=== PATIENT | female | born 1985 | race Caucasian/White ===

== ENCOUNTER 2017-12-27 15:18 | Emergency (ER) | payer SELFPAY ==
[~2017-12-27] VITALS: Ht 160 cm; Wt 59.1 kg
[~2017-12-27 15:18] MED LIST: ALBUTEROL SUL0.083 % IN; AMOXICILLIN500 MG PO; BACTRIM DS1 TAB PO; BUSPAR5 MG PO; CLARITIN10 M1 PO; MELOXICAM7.5 MG PO; NAPROSYN500 MG PO; NEURONTIN100 MG PO; PENICILLN VK500 MG PO; PROVENTIL HFA INH; ROBITUSSIN AC10 ML PO; ZITHROMAX250 MG PO; ZOFRAN4 MG/TAB PO
[2017-12-27 15:59] LABS: HEMATOCRIT 30.7 % (37.0-47.0); HEMOGLOBIN 9.3 g/dl (12.0-16.0); IMMATURE GRANULOCYTES 0.4 % (0.0-5.0); MEAN CELL VOLUME 78.7 fL CALC (80.0-100.0); MEAN CORPUSCULAR HGB 23.8 pG CALC (26.0-32.0); MEAN CORPUSCULAR HGB CONC 30.3 g/L CALC (32.0-36.0); NEUT# 5.4 thou/uL (2.00-7.15); RED BLOOD COUNT 3.9 mill/uL (4.20-5.60); RED CELL DISTRI WIDTH 15.8 % (11.5-15.5)
[2017-12-27 16:21] LABS: ALBUMIN 4.5 g/dL (3.2-5.0); ALKALINE PHOSPHATASE 67 u/l (38-126); ANION GAP 15 (6-22 (CALC)); BILIRUBIN, TOTAL 0.3 mg/dL (0.0-1.4); BUN 15 mg/dL (7-17); BUN/CREATININE RATIO 26 (12-20 (CALC)); CARBON DIOXIDE 27 mmol/l (22-30); CHLORIDE 102 mmol/l (95-108); CREATININE 0.6 mg/dL (0.5-1.0); GFR > 60 ML/MIN (>=60 (CALC)); GFR FOR AFR.AMER. > 60 ML/MIN (>=60 (CALC)); LIPASE 122 u/l (23-300); POTASSIUM 3.3 mmol/l (3.5-5.1); SGOT/AST 16 u/l (14-36); SODIUM 140 mmol/l (137-146); TOTAL PROTEIN 7.2 g/dL (6.3-8.2)
[2017-12-27] MEDS ORDERED: RANITIDINE 150150 MG PO (16:44)
[2017-12-27 16:49] VITALS: BP 138/94
== END 2017-12-27 16:54 | disposition home or self-care (01) | DRG 392 ==
LOC: ED 15:18
PROVIDERS: Family Medicine
DX: K29.70 Gastritis, unspecified, without bleeding (principal); R10.13 Epigastric pain; R06.02 Shortness of breath; R11.0 Nausea; R07.9 Chest pain, unspecified

== ENCOUNTER 2018-05-07 15:32 | Emergency (ER) | payer OTHER ==
[~2018-05-07] VITALS: Ht 160 cm; Wt 52.3 kg
[~2018-05-07 15:32] MED LIST changes: +RANITIDINE 150150 MG PO
[2018-05-07] MEDS ORDERED: PERCOGESI1 PO (16:16)
[2018-05-07 16:44] VITALS: BP 121/97
[2018-05-08] MEDS ORDERED: PERCOGESI1 PO (13:58)
== END 2018-05-07 17:05 | disposition home or self-care (01) ==
LOC: ED 15:32
DX: R51 Headache (principal); J45.909 Unspecified asthma, uncomplicated

== ENCOUNTER 2018-12-15 18:55 | Emergency (ER) | payer OTHER ==
[~2018-12-15] VITALS: Ht 160 cm; Wt 53.0 kg
[~2018-12-15 18:55] MED LIST changes: +PERCOGESI1 PO
[2018-12-15] MEDS ORDERED: BUSPAR5 M1 PO (19:04)
[2018-12-15] MEDS ORDERED: ZOFRAN4 MG/TAB PO (20:50)
[2018-12-15 21:29] VITALS: BP 138/88
== END 2018-12-15 21:28 | disposition home or self-care (01) ==
LOC: ED 18:55
DX: R51 Headache (principal); B34.9 Viral infection, unspecified

== ENCOUNTER 2019-04-06 | Emergency (ER) | payer OTHER ==
[~2019-04-06] MED LIST changes: +BUSPAR5 M1 PO
[2019-04-06] MEDS ORDERED: OMEPRAZOLE DR40 MG PO (14:26)
[2019-04-06] MEDS ORDERED: PROAIR HFA108 MCG/AC IN (14:28)
[2019-04-06] MEDS ORDERED: ZOFRAN4 MG/TAB PO (16:00)
== END 2019-04-06 16:24 | disposition home or self-care (01) ==
DX: K52.9 Noninfective gastroenteritis and colitis, unspecified (principal)

== ENCOUNTER 2020-09-02 12:19 | Emergency (ER) | payer OTHER ==
[~2020-09-02] VITALS: Ht 160 cm; Wt 62.6 kg
[~2020-09-02 12:19] MED LIST changes: +OMEPRAZOLE DR40 MG PO; +PROAIR HFA108 MCG/AC IN
[2020-09-02] MEDS ORDERED: TRAMADOL HYDROC50 M1 PO (12:45)
[2020-09-02] MEDS ORDERED: PENICILLN VK500 MG PO (12:45)
[2020-09-02 12:56] VITALS: BP 139/91
== END 2020-09-02 12:56 | disposition home or self-care (01) ==
LOC: ED 12:19
DX: K04.7 Periapical abscess without sinus (principal); K02.9 Dental caries, unspecified; J45.909 Unspecified asthma, uncomplicated; F41.9 Anxiety disorder, unspecified; K21.9 Gastro-esophageal reflux disease without esophagitis

== ENCOUNTER 2021-01-19 08:46 | Emergency (ER) | payer OTHER ==
[~2021-01-19] VITALS: Ht 160 cm; Wt 70.0 kg
[~2021-01-19 08:46] MED LIST changes: +TRAMADOL HYDROC50 M1 PO
[2021-01-19] MEDS ORDERED: NAPROXEN500 MG PO (10:20)
[2021-01-19 10:31] VITALS: BP 132/91
== END 2021-01-19 10:34 | disposition home or self-care (01) ==
LOC: ED 08:46
DX: S92.351A Displaced fracture of fifth metatarsal bone, right foot, initial encounter for closed fracture (principal); J45.909 Unspecified asthma, uncomplicated; F41.9 Anxiety disorder, unspecified; K21.9 Gastro-esophageal reflux disease without esophagitis; W07.XXXA Fall from chair, initial encounter; Y92.009 Unspecified place in unspecified non-institutional (private) residence as the place of occurrence of the external cause

== ENCOUNTER 2021-04-24 09:02 | Emergency (ER) | payer OTHER ==
[~2021-04-24] VITALS: Ht 160 cm; Wt 65.0 kg
[~2021-04-24 09:02] MED LIST changes: +NAPROXEN500 MG PO
[2021-04-24] MEDS ORDERED: OMEPRAZOLE DR10 MG (09:27)
[2021-04-24] MEDS ORDERED: ALBUTERO2 XX (09:27)
[2021-04-24] MEDS ORDERED: BUSPAR5 MG PO (09:27)
[2021-04-24 09:56] LABS: URINE BILIRUBIN - DIPSTICK NEGATIVE (NEGATIVE); URINE BLOOD DIPSTICK LARGE (NEGATIVE); URINE COLOR YELLOW; URINE GLUCOSE - DIPSTICK NEGATIVE (NEGATIVE); URINE KETONE TRACE mg/dL (NEGATIVE); URINE LEUK ESTERASE NEGATIVE (NEGATIVE); URINE PROTEIN - DIPSTICK 100 mg/dL (NEG-TRACE); URINE SPECIFIC GRAVITY >=1.030; URINE UROBILINOGEN - DIPSTICK 0.2 E.U./dL (0.2)
[2021-04-24 10:10] LABS: URINE NITRITE - DIPSTICK POSITIVE (Negative)
[2021-04-24 10:14] LABS: URINE BACTERIA MANY hpf; URINE SQUAMOUS EPITHELIAL CELL MANY EPI/hpf (0-FEW)
[2021-04-24] MEDS ORDERED: ONDANSETRON4 MG PO (10:23)
[2021-04-24] MEDS ORDERED: OMNI-PAC300 MG PO (10:23)
[2021-04-24 10:48] VITALS: BP 126/85
== END 2021-04-24 10:48 | disposition home or self-care (01) ==
LOC: ED 09:02
PROVIDERS: Family Medicine
DX: N39.0 Urinary tract infection, site not specified (principal); B96.1 Klebsiella pneumoniae [K. pneumoniae] as the cause of diseases classified elsewhere; U07.1 COVID-19; F41.9 Anxiety disorder, unspecified; K21.9 Gastro-esophageal reflux disease without esophagitis; J45.909 Unspecified asthma, uncomplicated

== ENCOUNTER 2021-08-22 20:53 | Observation (INO) | payer OTHER ==
[~2021-08-22] VITALS: Ht 160 cm; Wt 52.0 kg
[~2021-08-22 20:53] MED LIST changes: +ALBUTERO2 IN; +OMEPRAZOLE DR10 MG PO; +OMNI-PAC300 MG PO; +ONDANSETRON4 MG PO
[2021-08-22 21:02] VITALS: BP 138/79
[2021-08-22 21:29] LABS: URINE BILIRUBIN - DIPSTICK NEGATIVE (NEGATIVE); URINE BLOOD DIPSTICK LARGE (NEGATIVE); URINE COLOR YELLOW; URINE GLUCOSE - DIPSTICK NEGATIVE (NEGATIVE); URINE KETONE NEGATIVE (NEGATIVE); URINE PROTEIN - DIPSTICK 30 mg/dL (NEG-TRACE); URINE SPECIFIC GRAVITY 1.025
[2021-08-22 21:31] VITALS: BP 129/83
[2021-08-22 21:33] LABS: HCG SERUM/URINE (NEG/POS) NEGATIVE (NEGATIVE)
[2021-08-22 21:37] LABS: URINE LEUK ESTERASE MODERATE (NEGATIVE); URINE NITRITE - DIPSTICK POSITIVE (Negative)
[2021-08-22 21:38] LABS: URINE BACTERIA FEW hpf; URINE SQUAMOUS EPITHELIAL CELL MODERATE EPI/hpf (0-FEW); URINE WBC 50-100 WBC/hpf (0-5)
[2021-08-22 22:00] VITALS: BP 114/66
[2021-08-22 22:08] LABS: HEMATOCRIT 39.8 % (37.0-47.0); HEMOGLOBIN 12.9 g/dl (12.0-16.0); IMMATURE GRANULOCYTES 0.5 % (0.0-5.0); MEAN CORPUSCULAR HGB 30.1 pG CALC (26.0-32.0); MEAN CORPUSCULAR HGB CONC 32.4 g/dL CAL (32.0-36.0); NEUT# 17.43 thou/uL (2.00-7.15); RED BLOOD COUNT 4.28 mill/uL (4.20-5.60); RED CELL DISTRI WIDTH 12.6 % (11.5-15.5)
[2021-08-22 22:21] LABS: ALBUMIN 4.4 g/dL (3.2-5.0); BILIRUBIN, TOTAL 0.4 mg/dL (0.0-1.4); BUN 18 mg/dL (7-17); BUN/CREATININE RATIO 23 (12-20 (CALC)); CARBON DIOXIDE 29 mmol/l (22-30); CHLORIDE 96 mmol/l (95-108); CREATININE 0.8 mg/dL (0.5-1.0); GFR FOR AFR.AMER. > 60 ML/MIN (>=60 (CALC)); GFR OTHER RACES > 60 ML/MIN (>=60 (CALC)); LIPASE 70 u/l (23-300); SODIUM 136 mmol/l (137-146); TOTAL PROTEIN 7.8 g/dL (6.3-8.2)
[2021-08-22 22:22] LABS: ALKALINE PHOSPHATASE 132 u/l (38-126); ANION GAP 14 (6-22 (CALC)); POTASSIUM 2.6 mmol/l (3.5-5.1); SGOT/AST 196 u/l (14-36)
[2021-08-22 22:34] VITALS: BP 105/73
[2021-08-22 23:00] VITALS: BP 125/79
[2021-08-22 23:30] VITALS: BP 116/69
[2021-08-23 00:01] VITALS: BP 100/50
[2021-08-23 00:30] VITALS: BP 109/64
[2021-08-23 04:40] VITALS: BP 97/61
[2021-08-23 05:57] LABS: HEMATOCRIT 35.8 % (37.0-47.0); HEMOGLOBIN 11.2 g/dl (12.0-16.0); IMMATURE GRANULOCYTES 0.7 % (0.0-5.0); MEAN CELL VOLUME 94.7 fL CALC (80.0-100.0); MEAN CORPUSCULAR HGB 29.6 pG CALC (26.0-32.0); MEAN CORPUSCULAR HGB CONC 31.3 g/dL CAL (32.0-36.0); NEUT# 14.63 thou/uL (2.00-7.15); RED BLOOD COUNT 3.78 mill/uL (4.20-5.60); RED CELL DISTRI WIDTH 12.6 % (11.5-15.5)
[2021-08-23 07:21] VITALS: BP 122/80
[2021-08-23 07:52] LABS: ALKALINE PHOSPHATASE 115 u/l (38-126); BUN 19 mg/dL (7-17); BUN/CREATININE RATIO 30 (12-20 (CALC)); CARBON DIOXIDE 27 mmol/l (22-30); CHLORIDE 105 mmol/l (95-108); CREATININE 0.6 mg/dL (0.5-1.0); GFR FOR AFR.AMER. > 60 ML/MIN (>=60 (CALC)); GFR OTHER RACES > 60 ML/MIN (>=60 (CALC)); MAGNESIUM 1.9 mg/dL (1.6-2.3); SGOT/AST 141 u/l (14-36); SODIUM 137 mmol/l (137-146)
[2021-08-23 07:57] LABS: ALBUMIN 3.2 g/dL (3.2-5.0); ANION GAP 8 (6-22 (CALC)); BILIRUBIN, TOTAL 0.6 mg/dL (0.0-1.4); POTASSIUM 3.4 mmol/l (3.5-5.1); TOTAL PROTEIN 5.8 g/dL (6.3-8.2)
[2021-08-23] MEDS ORDERED: EXCEDRIN PO (10:21)
[2021-08-23 15:19] VITALS: BP 103/62
[2021-08-23 19:12] VITALS: BP 115/67
[2021-08-24 03:09] VITALS: BP 111/64
[2021-08-24 05:32] LABS: HEMATOCRIT 32.4 % (37.0-47.0); HEMOGLOBIN 10.3 g/dl (12.0-16.0); IMMATURE GRANULOCYTES 0.7 % (0.0-5.0); MEAN CELL VOLUME 94.7 fL CALC (80.0-100.0); MEAN CORPUSCULAR HGB 30.1 pG CALC (26.0-32.0); MEAN CORPUSCULAR HGB CONC 31.8 g/dL CAL (32.0-36.0); NEUT# 11.86 thou/uL (2.00-7.15); RED BLOOD COUNT 3.42 mill/uL (4.20-5.60); RED CELL DISTRI WIDTH 12.9 % (11.5-15.5)
[2021-08-24 05:49] LABS: ALBUMIN 2.8 g/dL (3.2-5.0); ALKALINE PHOSPHATASE 137 u/l (38-126); ANION GAP 9 (6-22 (CALC)); BUN 12 mg/dL (7-17); BUN/CREATININE RATIO 28 (12-20 (CALC)); CARBON DIOXIDE 25 mmol/l (22-30); CHLORIDE 107 mmol/l (95-108); CREATININE 0.4 mg/dL (0.5-1.0); GFR FOR AFR.AMER. > 60 ML/MIN (>=60 (CALC)); GFR OTHER RACES > 60 ML/MIN (>=60 (CALC)); MAGNESIUM 1.9 mg/dL (1.6-2.3); POTASSIUM 3.5 mmol/l (3.5-5.1); SGOT/AST 60 u/l (14-36); SODIUM 138 mmol/l (137-146); TOTAL PROTEIN 5.3 g/dL (6.3-8.2)
[2021-08-24 05:50] LABS: BILIRUBIN, TOTAL 0.3 mg/dL (0.0-1.4)
[2021-08-24 06:35] VITALS: BP 115/71
[2021-08-24 08:00] VITALS: BP 115/71
[2021-08-24] MEDS ORDERED: CIPROFLOXACN500 MG PO (09:37)
== END 2021-08-24 11:56 | disposition home or self-care (01) ==
LOC: ED 20:53 → ED-I 23:30 → ED 23:45 → MS2 23:46
PROVIDERS: Nurse Practitioner; ADMIT Hospitalist; ATTEND Hospitalist
DX: N10 Acute pyelonephritis (principal); E87.6 Hypokalemia; R74.8 Abnormal levels of other serum enzymes; K21.9 Gastro-esophageal reflux disease without esophagitis; J45.909 Unspecified asthma, uncomplicated; F41.9 Anxiety disorder, unspecified; F32.A Depression, unspecified; B96.20 Unspecified Escherichia coli [E. coli] as the cause of diseases classified elsewhere; Z87.440 Personal history of urinary (tract) infections; Z20.822 Contact with and (suspected) exposure to COVID-19
CPT/HCPCS: G0378

== ENCOUNTER 2021-11-12 11:55 | Emergency (ER) | payer OTHER ==
[~2021-11-12] VITALS: Ht 160 cm; Wt 59.0 kg
[~2021-11-12 11:55] MED LIST changes: +CIPROFLOXACN500 MG PO; +EXCEDRIN PO
[2021-11-12] MEDS ORDERED: CLINDAMYCIN300 M1 PO (12:19)
[2021-11-12 12:29] VITALS: BP 137/68
== END 2021-11-12 12:40 | disposition home or self-care (01) ==
LOC: ED 11:55
DX: K03.81 Cracked tooth (principal); J45.909 Unspecified asthma, uncomplicated; F41.9 Anxiety disorder, unspecified; K21.9 Gastro-esophageal reflux disease without esophagitis

== ENCOUNTER 2022-04-06 01:59 | Emergency (ER) | payer OTHER ==
[~2022-04-06] VITALS: Ht 160 cm; Wt 55.0 kg
[2022-04-06] VITALS (7 sets, daily range): BP systolic 132–167; BP diastolic 91–112
[~2022-04-06 01:59] MED LIST changes: +CLINDAMYCIN300 M1 PO
[2022-04-06 03:07] LABS: BASO% 0.3 % (0-3); EOS% 1.5 % (0-8); IMMATURE GRANULOCYTES 0.9 % (0.0-5.0); LYMPH% 14.5 % (15-41); MEAN CELL VOLUME 92.6 fL CALC (80.0-100.0); MEAN CORPUSCULAR HGB 29.5 pG CALC (26.0-32.0); MEAN CORPUSCULAR HGB CONC 31.9 g/dL CAL (32.0-36.0); MONO% 8.3 % (2-13); NEUT# 5.86 thou/uL (2.00-7.15); NEUT% 74.5 % (42-76); RED BLOOD COUNT 4.57 mill/uL (4.20-5.60); RED CELL DISTRI WIDTH 14.5 % (11.5-15.5)
[2022-04-06 03:08] LABS: URINE BILIRUBIN - DIPSTICK NEGATIVE (NEGATIVE); URINE BLOOD DIPSTICK MODERATE (NEGATIVE); URINE COLOR YELLOW; URINE GLUCOSE - DIPSTICK NEGATIVE (NEGATIVE); URINE KETONE 15 mg/dL (NEGATIVE); URINE PROTEIN - DIPSTICK 30 mg/dL (NEG-TRACE); URINE SPECIFIC GRAVITY >=1.030; URINE UROBILINOGEN - DIPSTICK 0.2 E.U./dL (0.2)
[2022-04-06 03:09] LABS: HEMATOCRIT 42.3 % (37.0-47.0); HEMOGLOBIN 13.5 g/dl (12.0-16.0)
[2022-04-06 03:11] LABS: HCG SERUM/URINE (NEG/POS) NEGATIVE (NEGATIVE)
[2022-04-06 03:21] LABS: URINE NITRITE - DIPSTICK NEGATIVE (Negative)
[2022-04-06 03:22] LABS: URINE LEUK ESTERASE NEGATIVE (NEGATIVE)
[2022-04-06 03:23] LABS: ALKALINE PHOSPHATASE 89 u/l (38-126); AMYLASE 61 u/l (30-110); ANION GAP 13 (6-22 (CALC)); BILIRUBIN, TOTAL 0.3 mg/dL (0.0-1.4); BUN 22 mg/dL (7-17); BUN/CREATININE RATIO 39 (12-20 (CALC)); CARBON DIOXIDE 28 mmol/l (22-30); CHLORIDE 103 mmol/l (95-108); CREATININE 0.6 mg/dL (0.5-1.0); GFR FOR AFR.AMER. > 60 ML/MIN (>=60 (CALC)); GFR OTHER RACES > 60 ML/MIN (>=60 (CALC)); LIPASE 122 u/l (23-300); POTASSIUM 3.3 mmol/l (3.5-5.1); SGOT/AST 42 u/l (14-36); SODIUM 141 mmol/l (137-146)
[2022-04-06 03:23] LABS: URINE BACTERIA MANY hpf; URINE EPITHELIAL CELLS MANY EPI/hpf (0-FEW)
[2022-04-06 03:29] LABS: ALBUMIN 5.2 g/dL (3.2-5.0); TOTAL PROTEIN 8.9 g/dL (6.3-8.2)
[2022-04-06] MEDS ORDERED: ULTRAM50 MG PO (05:48)
[2022-04-06] MEDS ORDERED: BACTRIM DS1 TAB PO (05:48)
[2022-04-06] MEDS ORDERED: ONDANSETRON4 MG PO (05:48)
== END 2022-04-06 06:22 | disposition home or self-care (01) ==
LOC: ED 01:59
PROVIDERS: Emergency Medicine
DX: K52.9 Noninfective gastroenteritis and colitis, unspecified (principal); E87.6 Hypokalemia; N39.0 Urinary tract infection, site not specified; F41.9 Anxiety disorder, unspecified; K21.9 Gastro-esophageal reflux disease without esophagitis
CPT/HCPCS: Q9967

== ENCOUNTER 2022-07-01 10:57 | Emergency (ER) | payer OTHER ==
[~2022-07-01] VITALS: Ht 160 cm; Wt 61.2 kg
[~2022-07-01 10:57] MED LIST changes: +ULTRAM50 MG PO
[2022-07-01 11:21] VITALS: BP 147/104
[2022-07-01] MEDS ORDERED: ZOFRAN4 MG/TAB PO (14:20)
== END 2022-07-01 14:48 | disposition home or self-care (01) ==
LOC: ED 10:57
DX: K52.9 Noninfective gastroenteritis and colitis, unspecified (principal); J45.909 Unspecified asthma, uncomplicated; F41.9 Anxiety disorder, unspecified; K21.9 Gastro-esophageal reflux disease without esophagitis

== ENCOUNTER 2022-07-07 09:14 | Emergency (ER) | payer OTHER ==
[2022-07-07] VITALS (7 sets, daily range): BP systolic 136–149; BP diastolic 77–99
[~2022-07-07] VITALS: Ht 160 cm; Wt 59.0 kg
[2022-07-07 10:48] LABS: URINE BILIRUBIN - DIPSTICK NEGATIVE (NEGATIVE); URINE BLOOD DIPSTICK LARGE (NEGATIVE); URINE COLOR YELLOW; URINE GLUCOSE - DIPSTICK NEGATIVE (NEGATIVE); URINE KETONE 40 mg/dL (NEGATIVE); URINE LEUK ESTERASE NEGATIVE (NEGATIVE); URINE PROTEIN - DIPSTICK 100 mg/dL (NEG-TRACE); URINE SPECIFIC GRAVITY 1.025; URINE UROBILINOGEN - DIPSTICK 0.2 E.U./dL (0.2)
[2022-07-07 10:49] LABS: URINE NITRITE - DIPSTICK POSITIVE (Negative)
[2022-07-07 10:58] LABS: URINE BACTERIA MODERATE hpf; URINE RBC 50-100 RBC/hpf (0-5); URINE SQUAMOUS EPITHELIAL CELL FEW EPI/hpf (0-FEW)
[2022-07-07] MEDS ORDERED: CIPROFLOXACN500 MG PO (12:04)
== END 2022-07-07 11:47 | disposition home or self-care (01) ==
LOC: ED 09:14
PROVIDERS: Family Medicine
DX: K52.9 Noninfective gastroenteritis and colitis, unspecified (principal); N39.0 Urinary tract infection, site not specified; B96.20 Unspecified Escherichia coli [E. coli] as the cause of diseases classified elsewhere; K21.9 Gastro-esophageal reflux disease without esophagitis; J45.909 Unspecified asthma, uncomplicated; F41.9 Anxiety disorder, unspecified; Z20.822 Contact with and (suspected) exposure to COVID-19

== ENCOUNTER 2022-11-27 10:06 | Emergency (ER) | payer OTHER ==
[2022-11-27] VITALS (7 sets, daily range): BP systolic 134–152; BP diastolic 88–104
[~2022-11-27] VITALS: Ht 160 cm; Wt 58.9 kg
[2022-11-27] MEDS ORDERED: VOLTAREN - GENE75 MG PO (11:09)
== END 2022-11-27 11:37 | disposition home or self-care (01) ==
LOC: ED 10:06
DX: M77.51 Other enthesopathy of right foot and ankle (principal); J45.909 Unspecified asthma, uncomplicated; F41.9 Anxiety disorder, unspecified; K21.9 Gastro-esophageal reflux disease without esophagitis; Z87.81 Personal history of (healed) traumatic fracture